=== PATIENT | male | born 1955 | race Caucasian/White ===

== ENCOUNTER → 2018-07-27 | Outpatient (CLI) | payer OTHER ==
--- NOTE | 2018-07-27 16:44 | Diagnostic Imaging Report ---
EXAM: Renal Ultrasound and pelvic ultrasound INDICATION: CKD, stage 3. COMPARISON: None TECHNIQUE: Transverse and longitudinal images of the kidneys and bladder were obtained. FINDINGS: Right Kidney: Length: Measures 12.1 x 6.3 x 4.5 cm Appearance: Normal echogenicity. Collecting system: No hydronephrosis Stones: None Cyst/Mass: None Left Kidney: Length: Measures 12.3 x 5.3 x 4.8 cm Appearance: Normal echogenicity. Collecting system: No hydronephrosis Stones: None Cyst/Mass: None Bladder: Unremarkable in appearance. Bilateral ureteral jets are present. Prostate: Not visualized. IMPRESSION: Unremarkable renal and bladder ultrasound. Signed by: Dr. Cherelle Major MD on 07/27/2018 4:40 PM
== END ==
LOC: US 15:39
PROVIDERS: ATTEND Internal Medicine Nephrology
DX: N18.3 Chronic kidney disease, stage 3 (moderate) (principal)
CPT/HCPCS: 76770; 76857

== ENCOUNTER → 2020-02-09 | Outpatient (CLI) | payer OTHER | LOC: US 13:53 | PROVIDERS: ATTEND Internal Medicine Nephrology | DX: I70.1 Atherosclerosis of renal artery (principal); I10 Essential (primary) hypertension | CPT/HCPCS: 93976 ==

== ENCOUNTER 2020-02-20 22:20 | Emergency (ER) | payer OTHER ==
[~2020-02-20] VITALS: Ht 175.3 cm; Wt 122.5 kg
--- NOTE | 2020-02-20 22:24 | Emergency Department Note ---
History of Present Illnes History of Present Illness Chief Complaint: Chest Pain History of Present Illness This is a 64 year old male with palpitatoins that started one hour NICKER with associated dizziness elevated BP. Seen at bedside NAD . Historian: Patient Onset (how long ago): hour(s) Radiation: Reports non-radiation Severity: moderate Onset quality: sudden Duration (how long): hour(s) (1) Timing of current episode: constant Progression: resolved Chronicity: new Context: Denies recent illness Relieving factors: none Exacerbating factors: none Associated symptoms: Reports other (palpitatoins) Treatments prior to arrival: none Past Medical/Family History Physician Review I have reviewed the patient's past medical and family history. Any updates have been documented here. Past Medical History Recent Fever: No Clinical Suspicion of Infectio: No New/Unexplained Change in Ment: No Past Medical History: Hypertension Past Surgical History: None Social History Smoking Cessation: Never Smoker Alcohol Use: None Any Illegal Drug Use: No Review of Systems Review of Systems Constitutional: Reports no symptoms EENTM: Reports no symptoms Cardiovascular: Reports palpitations Respiratory: Reports no symptoms Gastrointestinal: Reports no symptoms Genitourinary: Reports no symptoms Musculoskeletal: Reports no symptoms Integumentary: Reports no symptoms Neurological: Reports no symptoms Psychological: Reports no symptoms Endocrine: Reports no symptoms Hematological/Lymphatic: Reports no symptoms Physical Exam Related Data Allergies: Coded Allergies: Sulfa (Sulfonamide Antibiotics) (Verified Allergy, Intermediate, 02/20/20) Vital signs reviewed: Yes Physical Exam CONSTITUTIONAL Constitutional: Present well-developed, Present well-nourished HENT HENT: Present normocephalic, Present atraumatic, Present oropharynx clear/moist, Present nose normal HENT L/R: Present left ext ear normal, Present right ext ear normal EYES Eyes: Reports PERRL, Reports conjunctivae normal NECK Neck: Present ROM normal PULMONARY Pulmonary: Present effort normal, Present breath sounds normal CARDIOVASCULAR Cardiovascular: Present regular rhythm, Present heart sounds normal, Present capillary refill normal, Present normal rate GASTROINTESTINAL Abdominal: Present soft, Present nontender, Present bowel sounds normal GENITOURINARY Genitourinary: Present exam deferred SKIN Skin: Present warm, Present dry MUSCULOSKELETAL Musculoskeletal: Present ROM normal NEUROLOGICAL Neurological: Present alert, Present oriented x 3, Present no gross motor or sensory deficits PSYCHOLOGICAL Psychological: Present mood/affect normal, Present judgement normal Results Laboratory Lab results reviewed: Yes Laboratory comments Laboratory Tests Test 02/20/20 22:28 White Blood Count 8.41 x10e3/uL (4.8-10.8) Red Blood Count 4.35 x10e6/uL (4.3-5.7) Hemoglobin 12.2 g/dL (14.0-18.0) Hematocrit 37.5 % (38.2-49.6) Mean Corpuscular Volume 86.2 fL (81-99) Mean Corpuscular Hemoglobin 28.0 pg (28-32) Mean Corpuscular Hemoglobin Concent 32.5 g/dL (31-35) Red Cell Distribution Width 13.7 % (11.7-14.4) Platelet Count 253 x10e3/uL (140-360) Neutrophils (%) (Auto) 64.8 % (38.7-80.0) Lymphocytes (%) (Auto) 24.6 % (18.0-39.1) Monocytes (%) (Auto) 7.0 % (4.4-11.3) Eosinophils (%) (Auto) 2.5 % (0.0-6.0) Basophils (%) (Auto) 0.5 % (0.0-1.0) Neutrophils # (Auto) 5.5 (2.1-6.9) Lymphocytes # (Auto) 2.1 (1.0-3.2) Monocytes # (Auto) 0.6 (0.2-0.8) Eosinophils # (Auto) 0.2 (0.0-0.4) Basophils # (Auto) 0.0 (0.0-0.1) Absolute Immature Granulocyte (auto 0.05 x10e3/uL (0-0.1) D-Dimer Quantitative (PE/DVT) 0.27 ug/mLFEU (0.00-0.45) Sodium Level 144 mmol/L (136-145) Potassium Level 3.4 mmol/L (3.5-5.1) Chloride Level 106 mmol/L (98-107) Carbon Dioxide Level 26 mmol/L (22-29) Anion Gap 15.4 mmol/L (8-16) Blood Urea Nitrogen 18 mg/dL (7-26) Creatinine 1.18 mg/dL (0.72-1.25) Estimat Glomerular Filtration Rate > 60 ML/MIN (60-) BUN/Creatinine Ratio 15 (6-25) Glucose Level 154 mg/dL (74-118) Calcium Level 10.1 mg/dL (8.4-10.2) Total Bilirubin 0.2 mg/dL (0.2-1.2) Aspartate Amino Transf (AST/SGOT) 18 IU/L (5-34) Alanine Aminotransferase (ALT/SGPT) 19 IU/L (0-55) Alkaline Phosphatase 55 IU/L (40-150) Creatine Kinase 133 IU/L (30-200) Creatine Kinase MB 3.50 ng/mL (0-4.3) Troponin I 0.007 ng/mL (0-0.300) B-Type Natriuretic Peptide 22.7 pg/mL (0-100) Total Protein 7.6 g/dL (6.5-8.1) Albumin 4.3 g/dL (3.5-5.0) Globulin 3.3 g/dL (2.3-3.5) Albumin/Globulin Ratio 1.3 (0.8-2.0) Imaging Imaging results reviewed: Yes Impressions [place] [id number] Patient Name: SON DENIS MR #: [id number] : 1955 Age/Sex: 64/M Req #: [id number] Adm Physician: Ordered by: KIRSTY APONTE DO Report #: [id number] Location: ER Room/Bed: Procedure: [id number] DX/CHEST SINGLE (PORTABLE) Exam Date: 02/20/20 Exam Time: 2314 REPORT STATUS: Signed EXAMINATION: CHEST SINGLE (PORTABLE) INDICATION: Palpitation, high blood pressure. ^ERMD ORDER ^[id number] ^[id number] ^Y COMPARISON: None FINDINGS: TUBES and LINES: None. LUNGS: Normal lung volumes. Lungs are clear. No consolidations. PLEURA: No pleural effusion or pneumothorax. HEART AND MEDIASTINUM: The cardiomediastinal silhouette is unremarkable. BONES AND SOFT TISSUES: No acute osseous lesion. Soft tissues are unremarkable. Partially imaged ACDF. UPPER ABDOMEN: No free air under the diaphragm. IMPRESSION: No acute thoracic radiographic abnormality. Signed by: Son Valdivia MD on 02/21/2020 12:02 AM Dictated By: SON VALDIVIA MD Transcribed By: LIANE on 02/21/201 COPY TO: KIRSTY APONTE DO~ Procedures 12 Lead ECG Interpretation ECG Interpretation : ECG: ECG 1 Learning And Development Consultant: Interpreted by ED physician Date: Feb 20, 2020 Time: 22:27 Prior ECG tracings: reviewed Rate: normal BPM: 94 QRS axis: normal ST segments normal: Yes T waves flattening: aVL, V1, V2 Clinical Impression: non-specific ECG Assessment & Plan Medical Decision Making MDM Diff Dx : Palpitatoins, SVT, A fib, V-tach, ACS Assessment & Plan Final Impression: (1) Palpitations (2) Hypertension Depart Disposition: HOME, SELF-CARE KIRSTY APONTE DO Feb 20, 2020 22:24
[2020-02-20] MEDS ORDERED: ASPIRIN 81 MG CHEW TAB PO ONE (22:30)
[2020-02-20 22:38] LABS: BASOPHILS % 0.5 % (0.0-1.0); EOSINOPHILS # (AUTO) 0.2 (0.0-0.4); EOSINOPHILS % 2.5 % (0.0-6.0); HEMATOCRIT 37.5 % (38.2-49.6); HEMOGLOBIN 12.2 g/dL (14.0-18.0); LYMPHOCYTES # (AUTO) 2.1 (1.0-3.2); LYMPHOCYTES % 24.6 % (18.0-39.1); MEAN CORPUSCULAR HGB CONC 32.5 g/dL (31-35); MEAN CORPUSCULAR VOLUME 86.2 fL (81-99); MONOCYTES # (AUTO) 0.6 (0.2-0.8); NEUTROPHILS # (AUTO) 5.5 (2.1-6.9); NEUTROPHILS % 64.8 % (38.7-80.0); PLATELET COUNT 253 x10e3/uL (140-360); RED BLOOD COUNT 4.35 x10e6/uL (4.3-5.7); RED CELL DISTRIBUTION WIDTH 13.7 % (11.7-14.4)
[2020-02-20 22:52] LABS: ALANINE AMINOTRANSFERASE 19 IU/L (0-55); ALBUMIN 4.3 g/dL (3.5-5.0); ALBUMIN/GLOBULIN RATIO 1.3 (0.8-2.0); ALKALINE PHOSPHATASE 55 IU/L (40-150); ANION GAP 15.4 mmol/L (8-16); BLOOD UREA NITROGEN 18 mg/dL (7-26); BUN/CREATININE RATIO 15 (6-25); CALCIUM 10.1 mg/dL (8.4-10.2); CARBON DIOXIDE 26 mmol/L (22-29); CHLORIDE 106 mmol/L (98-107); CREATINE KINASE 133 IU/L (30-200); CREATININE, SERUM 1.18 mg/dL (0.72-1.25); EST GLOMERULAR FILTRATION RATE > 60 ML/MIN (60-); GLUCOSE 154 mg/dL (74-118); POTASSIUM 3.4 mmol/L (3.5-5.1); SODIUM 144 mmol/L (136-145)
--- NOTE | 2020-02-21 00:05 | Diagnostic Imaging Report ---
EXAMINATION: CHEST SINGLE (PORTABLE) INDICATION: Palpitation, high blood pressure. ^ERMD ORDER ^[id number] ^[id number] ^Y COMPARISON: None FINDINGS: TUBES and LINES: None. LUNGS: Normal lung volumes. Lungs are clear. No consolidations. PLEURA: No pleural effusion or pneumothorax. HEART AND MEDIASTINUM: The cardiomediastinal silhouette is unremarkable. BONES AND SOFT TISSUES: No acute osseous lesion. Soft tissues are unremarkable. Partially imaged ACDF. UPPER ABDOMEN: No free air under the diaphragm. IMPRESSION: No acute thoracic radiographic abnormality. Signed by: Osmel Perez MD on 02/21/2020 12:02 AM
[2020-02-21 00:22] VITALS: BP 150/75
== END 2020-02-21 00:40 | disposition home or self-care (01) ==
LOC: ER 22:25
DX: R00.2 Palpitations (principal); I10 Essential (primary) hypertension
CPT/HCPCS: 36415; 71045; 80053; 82550; 82553; 83880; 84484; 85025; 85379; 99284

== ENCOUNTER → 2020-02-28 | Outpatient (CLI) | payer OTHER ==
--- NOTE | 2020-02-28 16:31 | Diagnostic Imaging Report ---
EXAM: CT Abdomen and Pelvis WITHOUT intravenous contrast INDICATION: Hydronephrosis COMPARISON: Renal ultrasound 02/09/2020 TECHNIQUE: Abdomen and pelvis were scanned utilizing a multidetector helical scanner from the lung base to the pubic symphysis without administration of IV contrast. Coronal and sagittal reformations were obtained. IV CONTRAST: None ORAL CONTRAST: Water COMPLICATIONS: None RADIATION DOSE: Total DLP: 859 mGy*cm Dose modulation, iterative reconstruction, and/or weight based adjustment of the mA/kV was utilized to reduce the radiation dose to as low as reasonably achievable. FINDINGS: LOWER THORAX: Normal. HEPATOBILIARY: No focal hepatic lesions. No biliary ductal dilatation. The gallbladder appears unremarkable. SPLEEN: No splenomegaly. PANCREAS: No focal masses or ductal dilatation. ADRENALS: No adrenal nodules. KIDNEYS/URETERS: 8 mm obstructive calculus at the right ureteropelvic junction resulting in mild right hydronephrosis. Additional 2 mm anterior right midpole renal calculus. On the left, there is a 7 mm obstructive mid ureteral calculus resulting in mild left hydronephrosis and proximal hydroureter. Additional 2 mm left lower pole renal calculus. PELVIC ORGANS/BLADDER: Unremarkable. PERITONEUM / RETROPERITONEUM: No free air or fluid. LYMPH NODES: No lymphadenopathy. VESSELS: Mild scattered atherosclerotic calcifications of the nonaneurysmal abdominal aorta and major branches. GI TRACT: Diverticulosis without CT evidence of diverticulitis. No abnormal bowel thickening. No bowel obstruction. Normal appendix BONES AND SOFT TISSUES: No acute osseous injury. No suspicious lytic or blastic lesions. Mild multilevel degenerative changes of the visualized spine. IMPRESSION: Bilateral obstructive urinary calculi measuring 8 mm at the right ureteropelvic junction and 7 mm at the left mid ureter resulting in mild bilateral hydronephrosis and left proximal hydroureter. Additional smaller bilateral renal calculi as above. Diverticulosis. Signed by: Delfino Baum MD on 02/28/2020 4:27 PM
== END ==
LOC: CT 15:26
PROVIDERS: ATTEND Urology
DX: N13.2 Hydronephrosis with renal and ureteral calculous obstruction (principal)
CPT/HCPCS: 74176